=== PATIENT | female | born 1970 | race Caucasian/White ===

== ENCOUNTER → 2017-09-29 10:29 | Outpatient (CLI) | payer OTHER, SELFPAY ==
--- NOTE | 2017-09-29 | DI.MRI.S_ITS ---
PROCEDURE: MR ANKLE RT WO CON INDICATIONS: RIGHT ANKLE SPRAIN TECHNIQUE: Noncontrast sagittal T1 spin echo and T2 fast spin echo with fat saturation, axial proton density fast spin echo and T2 fast spin echo with fat saturation, coronal T1 spin echo and T2 fast spin echo with fat saturation through the ankle/hindfoot. COMPARISON: None. FINDINGS: Image quality: Excellent. Bones and joints: No fracture line identified however marrow edema within the head and neck of the talus. There is also lateral malleolar marrow edema. No hindfoot coalitions. No osteochondral injuries of the talar dome. Tibiotalar joint effusion. Medial structures: The posterior tibialis, flexor digitorum longus, and flexor hallucis longus tendons are intact.. There is mild fluid surrounding the posterior tibialis tendon in keeping with tenosynovitis. The posterior tibial neurovascular bundle appears normal within the tarsal tunnel, without extrinsic mass effect. The deep layer (anterior and posterior tibiotalar ligaments) and superficial layer (tibionavicular, tibiospring, and tibiocalcaneal ligaments) of the deltoid ligament appear normal. The spring ligament components (superomedial calcaneonavicular, medioplantar oblique calcaneonavicular, and inferoplantar longitudinal ligaments) are intact. Lateral structures: The anterior talofibular and calcaneofibular ligament are not well seen, probably ruptured. The posterior talofibular ligament appears intact. More superiorly, the anterior and posterior tibiofibular ligaments appear intact, as is the intermalleolar ligament. The tibiofibular syndesmosis is normal in width at 2 mm or less. The peroneus longus appears intact. Peroneus brevis intrasubstance signal change in keeping with tendinopathy/low-grade partial rupture. demonstrate normal location and morphology. Adjacent bony peroneal tubercle and retrotrochlear prominence are normal in size. The sinus tarsi demonstrates normal fatty signal, without edema, fibrosis, or cyst formation. Visualized sinus tarsi components (cervical ligament, interosseous talocalcaneal ligament, roots of the inferior extensor retinaculum) appear normal. The calcaneonavicular and calcaneocuboid components of the bifurcate ligament appear intact. The dorsal calcaneocuboid ligament appears intact. Anterior structures: The tibialis anterior, extensor hallucis longus, and extensor digitorum longus tendons appear intact. The dorsal talonavicular ligament appears intact. Posterior and plantar structures: Achilles tendon is intact. Medial and lateral bands of the plantar fascia are of normal thickness. No abductor digiti quinti muscle atrophy to suggest Crouch neuropathy. IMPRESSION: Probable acute marrow contusion involving the talar head and neck, as well as the lateral malleolus. Recommend correlation with dedicated ankle radiographs to exclude nondisplaced fracture. Rupture of the anterior talofibular and calcaneofibular ligaments. Posterior tibialis tenosynovitis. Peroneus longus and brevis tenosynovitis. There is also superimposed peroneus brevis tendinopathy/low-grade partial rupture Tibiotalar joint effusion. Dictated by: Juan Mclaughlin M.D. on 09/29/2017 at 11:55 Approved by: Juan Mclaughlin M.D. on 09/29/2017 at 12:37
== END ==
PROVIDERS: Visit Provider Family Medicine
DX: S93.491A Sprain of other ligament of right ankle, initial encounter (principal); M65.9 Synovitis and tenosynovitis, unspecified; M25.471 Effusion, right ankle
CPT/HCPCS: 73721

== ENCOUNTER → 2019-05-27 09:11 | Outpatient (CLI) | payer OTHER, SELFPAY ==
--- NOTE | 2019-05-27 | DI.MG.S_ITS ---
BILATERAL DIGITAL SCREENING MAMMOGRAM 3D/2D WITH CAD: 05/27/2019 CLINICAL: Routine screening. Comparison is made to exam dated: 04/25/2012 mammogram - [facility]. The tissue of both breasts is extremely dense, which lowers the sensitivity of mammography. Current study was also evaluated with a Computer Aided Detection (CAD) system. No significant masses, calcifications, or other findings are seen in either breast. There has been no significant interval change. IMPRESSION: NEGATIVE There is no mammographic evidence of malignancy. A 1 year screening mammogram is recommended. This exam was interpreted at Station ID: [id number]. NOTE: For mammograms, a report in lay terms will be sent to the patient. Approximately 15% of breast malignancies will not be visualized mammographically. In the management of a palpable breast mass, a negative mammogram must not discourage biopsy of a clinically suspicious lesion. Electronically Signed By: Chela barbosa/iris:05/29/2019 08:20:49 letter sent: Normal Exam ACR BI-RADS Category 1: Negative [id number]
== END ==
PROVIDERS: PCP Family Medicine; Referring Provider Family Medicine; Visit Provider Family Medicine
DX: Z12.31 Encounter for screening mammogram for malignant neoplasm of breast (principal)
CPT/HCPCS: 77063; 77067

== ENCOUNTER 2019-12-15 09:38 | Day surgery (SDC) | payer OTHER, SELFPAY ==
--- NOTE | 2019-12-15 | PATH_ITS ---
[facility] Accession Number: [id number] . 01 Material submitted: . body - POLYP AT 90CM . 01 Clinical history: . A: POLYP COLD SNARE AT 90CM (ALSO TATTOOED) . 02 Diagnosis: Colon, Polyp at 90 cm, Biopsy: Sessile serrated adenoma. [facility] 12/19/2019 1402 Local . 02 Electronically signed: . Ekaterina Matias MD, Pathologist NPI- [id number] . 01 Gross description: . Received in formalin, labeled polyp at 90 cm, are two fragments of veras, soft tissue measuring 0.7 x 0.5 x 0.3 cm to 0.9 x 0.3 x 0.2 cm. The surfaces on both pieces are unremarkable. Both pieces are entirely submitted in cassette A1. ([id number]) /[facility] 12/16/2019 0905 Local . 02 Pathologist provided ICD-10: D12.6 . 02 CPT . 709202 Performed at: 01 [facility] [address] [facility], [place], [place] [id number] MD Samuel Liang MD Phone: [phone] Performed at: 02 [facility] [address] [place], [place] [id number] MD Ekaterina Matias MD Phone: [phone]
[2019-12-15 10:00] VITALS: BMI 18.0
[2019-12-15] MEDS: SODIUM CHLORIDE 0.9% 1,000 ML 200 ML IV (10:09)
--- NOTE | 2019-12-15 10:19 | PM.HP.1 ---
History of Present Illness History of Present Illness Date Patient Seen: 12/15/19 Time Patient Seen: 10:28 Chief complaint: SDC Narrative: This is a 49-year-old woman who is here for her 1st screening colonoscopy. She denies any history of melena, hematochezia, unexplained abdominal pain, unexplained weight loss. She denies any family history of colon polyps or colon cancers. She says she is otherwise quite healthy. ROS: Thirteen system review is otherwise negative other than as mentioned below and in HPI. PE: GENERAL: Well groomed and cooperative. Appears stated age. Answers questions promptly and appropriately. Vital signs noted. HENT: Normocephalic, atraumatic. Hearing intact. EYES: Conjunctiva pink, sclera white, no periorbital swelling. CARDIOVASCULAR: Regular rate. No pedal edema. RESPIRATORY: Non-tachypneic, breathing comfortably on room air. GASTROINTESTINAL: Abdomen soft and non-distended GENITALURINARY: No flank tenderness. MUSCULOSKELETAL: Equal tone and mass bilaterally. SKIN: Warm, dry, soft, appropriate color for ethnicity. No other lesions, rashes, or wounds. NEURO: Alert and Oriented X 3. No gross sensory deficits, or cognitive issues. PSYCH: Appropriate affect and mood. Patient History Medical History Depression (Acute) History of migraine (Acute) Rosacea (Acute) Surgical History History of knee surgery (Acute) Family & Social History Social History: household members spouse,children Tobacco & Substance use: Smoking Status Never smoker alcohol intake current alcohol intake frequency a few times a week Substance Use Type does not use Meds Home Medications and Allergies Home Medications Medication Instructions Recorded Confirmed Type sumatriptan succinate 100 mg PO PRN PRN #9 tab 06/20/16 12/15/19 Rx levonorgestrel-ethinyl estrad 1 tab PO QDAY #28 tab 08/11/16 12/15/19 Rx [Aviane] diclofenac sodium [Voltaren] 1 michael TOPICAL TID #100 gm 10/20/16 12/15/19 Rx lamotrigine 2 tab PO BID 12/15/19 12/15/19 History Allergies Allergy/AdvReac Type Severity Reaction Status Date / Time No Known Drug Allergies Allergy Verified 12/15/19 09:56 Assessment & Plan Assessment and plan (1) At average risk for colon cancer: Status: Acute Assessment & Plan narrative: Risks and benefits of screening colonoscopy and possible polypectomy were discussed with the patient including risk of bleeding, perforation, need for additional procedures, risks of anesthesia. The patient desires to proceed with the colonoscopy procedure. COVID-19 COVID-19 status: Negative Result date/Date tested (Pos, Neg/Pending): 12/14/19 Time Spent With Patient Time with patient: 15-24 minutes Quality VTE Deep Vein Thrombosis/Pulmonary Embolism Present on Admission: No
--- NOTE | 2019-12-15 10:31 | P.OP.ENDO_ITS ---
Operative Date/Time/Diagnoses Date of procedure: 12/15/19 Time of procedure: 10:31 Pre-op diagnosis: Average risk for colon cancer Post-op diagnosis: other (2 cm colon polyp at 90 cm from the anal verge) Procedure & Clinicians Study performed: Colonoscopy Procedural sedation performed by the endoscopist Polypectomy with cold snare Tattooing of polypectomy site Indications: 49-year-old woman at average risk for colon cancer, due for 1st screening colonoscopy Surgeon: Macey Madrid Procedure Notes SCOAP/Timeout: Performed Procedure in detail: The patient was brought to the room and placed in left lateral decubitus position with all bony prominences padded. A time-out was performed and then the patient was given procedural sedation starting with 2 mg of Versed and 100 mcg of fentanyl. Total of 4 mg of Versed and 100 micro g of fentanyl were given for the entire procedure. Vitals were monitored throughout the procedure and remained stable. Once adequately sedated, the procedure was begun. A rectal exam was performed revealing no abnormalities. The colonoscope was then introduced to the rectum and advanced to the cecum in the usual fashion. The cecum was identified by the appendiceal orifice, the mucosal tri- fold, and the ileocecal valve. The scope was then retracted while rotating side to side and examining each mucosal fold. A 2 cm wide flat polyp was seen on a mucosal fold at 90 cm from the anal verge. It was removed with cold snare and sent for pathology. A tattoo was placed at this site with Rani ink. At the conclusion of the procedure retroflexion was performed and small grade 1-2 internal hemorrhoids without stigmata of bleeding were seen. The scope was then withdrawn from the rectum the procedure was concluded. The patient tolerated the procedure well and was transferred to the PACU in stable condition. Scope withdrawal time: 15 Sedation minutes: 36 Findings: polyp (Wide flat polyp at 90 cm, removed with cold snare, tattooed) Specimen(s): other (Polyp) Complications: none Impression: Single adenomatous appearing polyp removed piecemeal with cold snare, and 90 cm and tattooed Post-procedure Recommendations: Colonscopy in 1 year (Recheck of polypectomy site in 1 year) Follow up: as needed Disposition: PACU
[2019-12-15] MEDS: fentaNYL 250 MCG/5 ML INJ IV (10:32)
[2019-12-15] MEDS: MIDAZOLAM 5 MG/5 ML VIAL IV (10:32)
[2019-12-15 11:14] VITALS: BP 105/61; PULSE 48; RESP 15; TEMP 36.1; O2SAT 100
[2019-12-15 11:19] VITALS: BP 102/62; PULSE 46; RESP 18; O2SAT 99
[2019-12-15 11:24] VITALS: BP 133/63; PULSE 49; RESP 14; O2SAT 97
[2019-12-15 11:29] VITALS: BP 110/72; PULSE 51; RESP 13; O2SAT 100
--- NOTE | 2019-12-15 11:32 | SUR.PHASEI ---
1125 tolerated procedure well; Dr. Madrid spoke with the patient. Tolerated juice well
[2019-12-15 12:30] VITALS: BP 98/61; PULSE 55; RESP 12; TEMP 37.3; O2SAT 100
--- NOTE | 2019-12-15 12:34 | SUR.PHASEII ---
1225 Resumed care of patient, aroused easily to voice. She has been waiting for her ride (whom had gone out of town). Denies pain, nausea, states that she feels very sleepy. Denies light-headedness.
--- NOTE | 2019-12-15 12:50 | SUR.PHASEII ---
1244 Pt was very pleasant, apologized repeatedly for the delay in being picked up, repeatedly expressed compliments and appreciation for the care from everyone. Stable
== END 2019-12-15 12:44 | disposition home or self-care (01) ==
PROVIDERS: PCP Family Medicine; Referring Provider Surgery; Visit Provider Surgery
PROC: 0DJD8ZZ Inspection of Lower Intestinal Tract, Via Natural or Artificial Opening Endoscopic (ICD-10-PCS; CPT 45378; principal; 2019-12-15 10:45)
DX: Z12.11 Encounter for screening for malignant neoplasm of colon (principal); D12.6 Benign neoplasm of colon, unspecified; K64.0 First degree hemorrhoids
CPT/HCPCS: 45385; 45381; 99152; 99153; J2250; J3010

== ENCOUNTER 2021-06-24 11:00 | Day surgery (SDC) | payer OTHER, SELFPAY ==
[2021-06-24] VITALS (7 sets, daily range): BP systolic 97–115; BP diastolic 49–74; PULSE 52–63; RESP 12–18; TEMP 36.3–36.9; O2SAT 94–99; BMI 18.4
[2021-06-24 11:41] LABS: COVID19 -Nasal RAPID Negative (Negative)
[2021-06-24] MEDS: LACTATED RINGERS 1,000 ML 200 ML IV (12:25)
--- NOTE | 2021-06-24 13:40 | PM.HP.1 ---
History of Present Illness History of Present Illness Date Patient Seen: 06/24/21 Time Patient Seen: 13:40 Chief complaint: SDC Narrative: 51-year-old woman history polyps and a sessile serrated adenoma removed 2 years ago here for colonoscopy. No personal or family history of intestinal malignancy. No blood per rectum nausea vomiting and weight loss abdominal pain. Patient History Medical History Depression History of migraine Rosacea Surgical History History of knee surgery Family & Social History Social History: household members spouse,children Tobacco & Substance use: Smoking Status Never smoker alcohol intake current alcohol intake frequency a few times a week Substance Use Type does not use Meds Home Medications and Allergies Home Medications Medication Instructions Recorded Confirmed Type levonorgestrel-ethinyl estradiol 1 tab PO QDAY #28 tab 08/11/16 09/16/20 Rx 0.1 mg-20 mcg tablet (Aviane) lamotrigine 2 tab PO BID 12/15/19 06/24/21 History sodium sul 1.479 gram-potas ch See Rx Instructions PO PER PKG DIR 06/17/21 Rx 0.188 gram-magnes sul 0.225 gram #24 tab tablet (Sutab) sumatriptan succinate 100 mg tablet 100 mg PO PRN PRN 06/24/21 06/24/21 History Allergies Allergy/AdvReac Type Severity Reaction Status Date / Time No Known Drug Allergies Allergy Verified 06/24/21 12:19 Exam Vital Signs (past 8 hours): - 06/24/21 12:14 Temperature 98 F Pulse Rate 59 L Respiratory Rate 15 Blood Pressure 115/74 Pulse Oximetry 99 Oxygen Delivery Method Room Air Narrative Exam Narrative: GENERAL: Adult female in no apparent distress HEENT: No scleral icterus CV: Regular rate, no peripheral edema LUNGS: No increased work of breathing. Patient speaks in full sentences without oxygen support. ABDOMEN: Soft, non-tender, non-distended NEURO: Nonfocal, normal strength throughout. SKIN: Warm and dry Objective Labs Labs: Laboratory Results - last 24 hr 06/24/21 11:10 SARS-CoV-2 (PCR) Negative Assessment & Plan Assessment & Plan narrative: 51-year-old woman personal history of colonic polyps here for colonoscopy. Technical details were discussed. Risks, benefits, alternatives explained. Risks including but not limited to myocardial infarction, aspiration, bleeding, pain, missed lesion, incomplete examination, need for further radiographic studies, colonic perforation, and need for major abdominal surgery were discussed. All questions were answered to their satisfaction, and they are in agreement with this plan. Time Spent With Patient Critical Care time: I spent a total of [] minutes of critical care time on this patient's care today; this time is exclusive of procedural time.
--- NOTE | 2021-06-24 14:12 | PM.OP.COLON ---
Operative Date/Time/Diagnoses Date of procedure: 06/24/21 Time of procedure: 14:12 Pre-op diagnosis: personal history of colonic polyps Post-op diagnosis: same Procedure & Clinicians Study performed: colonoscopy Same procedure as scheduled: Yes Indications: personal history of colonic polyps Surgeon: Mehul Lee Procedure Notes Procedure in detail: Medications: Conscious sedation using 7 mg IV midazolam and 250 mcg IV of fentanyl The history and physical was performed/updated and the patient is ASA class is 1. The procedure was discussed in detail with the patient. Potential risks complications including infection, bleeding, missed diagnosis, perforation, need for surgery, and were explained. Their questions were answered and informed consent was obtained. Patient was brought to the procedure room and placed standard monitoring equipment. The patient's vital signs were monitored continuously throughout the entire procedure. Prior to starting time-out was performed. The patient was placed in the left lateral recumbent position. Procedural sedation was administered. Examination began with a thorough inspection of the perianal area there was no evidence of fissures, fistulae, external hemorrhoids or cutaneous malignancy. The colonoscopy scope was then placed into the anal canal and was advanced to the cecum, which was identified by the ileocecal valve, the appendiceal orifice and the confluence of the taenia. The scope was then slowly withdrawn examining colon thoroughly in all directions, irrigating it of any residual stool. FINDINGS 1. Normal healthy colon 2. No masses or polyps 3. Grade 1 internal hemorrhoids The patient tolerated the procedure well. They will be discharged once criteria are met. The prep was of good/excellent quality. The withdrawl time was 6 minutes. The sedation time was 26 minutes. Specimen(s): none sent Complications: none Impression: Normal colonoscopy Post-procedure Recommendations: Colonoscopy in 10 years Disposition: same day surgery
[2021-06-24] MEDS: MIDAZOLAM 5 MG/5 ML VIAL IV (14:13)
[2021-06-24] MEDS: fentaNYL 250 MCG/5 ML INJ IV (14:14)
== END 2021-06-24 15:02 | disposition home or self-care (01) ==
PROVIDERS: PCP Family Medicine; Referring Provider Surgery; Visit Provider Surgery
PROC: 0DJD8ZZ Inspection of Lower Intestinal Tract, Via Natural or Artificial Opening Endoscopic (ICD-10-PCS; CPT 45378; principal; 2021-06-24 13:45)
DX: Z12.11 Encounter for screening for malignant neoplasm of colon (principal); Z86.010 Personal history of colon polyps; Z20.822 Contact with and (suspected) exposure to COVID-19; K64.0 First degree hemorrhoids
CPT/HCPCS: 45378; 87635; 99152; 99153; C9803; J2250; J3010